=== PATIENT | female | born 1995 | race Caucasian/White ===

== ENCOUNTER 2023-06-11 11:05 | Emergency (ER) | payer OTHER ==
[~2023-06-11] VITALS: Ht 162.6 cm; Wt 52.2 kg
== END 2023-06-11 13:34 | disposition home or self-care (01) ==
LOC: ER 11:05
DX: S80.01XA Contusion of right knee, initial encounter (principal); W22.10XA Striking against or struck by unspecified automobile airbag, initial encounter; Y93.89 Activity, other specified; Y92.89 Other specified places as the place of occurrence of the external cause; Y99.8 Other external cause status